=== PATIENT | female | born 1995 | race Caucasian/White ===

== ENCOUNTER 2018-06-03 08:24 | Day surgery (SDC) | payer OTHER ==
--- NOTE | 2018-06-02 17:47 | PDGENHP ---
History and Physical - Chief Complaint LEFT HIP PAIN - History of Present Illness 1. LEFT HIP PAIN S/P Left hip arthroscopy and Left ELVIS HISTORY OF PRESENT ILLNESS: Efrainis a 22 y.o.~~~active female~who I have had the pleasure to consult on today. I have enjoyed meeting her. She~lives in [place], [place]. 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 ~She~is single; she~has 0 children. ~Efrainenjoys volleyball, basketball, dance, outdoor activities, shopping. Margarita's left hip pain started approximately 4.5 years ago, with no~previous complaints and with no~recalled trauma or injury. ~Efraindoes not have~a known history of hip dysplasia, is the third sibling with two older brothers and was normal presentation at . Presentation today is of anterior left hip pain with a positive "C" sign. ~It is non-radiating and sharp. ~The hip does not~wake her~at night and does~click and catch on her. Sitting can be uncomfortable for her. Efraindoes~report suffering from lower back pain episodes. ~Back pain started 6 years ago when she noticed difficulty lying spine with a sharp pain. ~Pain improves with flexion and worsens with extension. ~Comprehensive work-up has revealed no structural abnormalities and she has completed PT for core strengthening. ~She denies neurologic symptoms. Efrainhas~participated in physical therapy for 1 month with 3 - 4 sessions ( most recently in the fall) and has~tried other conservative measures including chiropractic treatments and massage therapy. She~has not~received sufficient symptomatic improvement. Efrainhas~utilized medication for pain management, including NSAID. Efrainhas used medication for 2 ~years. Efraindenies issues with the right hip. ~ Margarita is unable to work-out, hike, or shop due to her hip pain and it has significantly impacted all aspects of her life. Efrainunderstands that she~has a hip and pelvis problem which should be researched and wishes to get a better understanding of her~hip status, followed by an establishment of a treatment strategy, hoping she~would be able to get back to her~well being active life. History: Past medical history: ~ None which is relevant Relevant familial history: None which is relevant Past surgical history: Left Hip Arthroscopy Left ELVIS Efrainreports not having any issues with general anesthesia. I have reviewed, verified and agree with the past medical, surgical, family and social history. Current Medications:~has a current medication list which includes the following prescription(s): tri-sprintec (28). ALLERGIES:~has No Known Allergies. Objective: Physical Examination: Efrainis 5 feet 4 inches tall and weighs 130 Lbs. Efrainis AAO x3; she~is well -nourished, in NAD. Skin is warm and dry. ~Breathing is non-labored. ~CV with RRR by pulse. Abdomen is soft, NTND. ~Currently, she~walks with a normal~gait. She~has no leg length discrepancy and presents with moderate~signs of joint laxity (Beighton Score #4). She~is fit looking. ~~ Trendelenburg sign is positive and proprioception is reduced, both~sides. Lower spine examination is negative for sciatic or femoral nerve irritation with negative SLR &~femoral stretch tests. Range of motion of the spine is normal~for flexion, extension, and rotations, with associated pain on extension. SIJs examination is produces pain on left side with TTP with normal~CHADWICK in relation and local tenderness. Strength, Sensation and pulses are normal - bilaterally Ankles and knees exams are normal~and no~mal-alignment is evident. Hip ROM (degrees): ER At 90~hip FL IR At 90~hip FL IR Neutral hip ER Neutral hip AB AD FL EX R 55 45 50 19 50 10 115 0 L 55 20 40 24 455 10 110 0 Specific hip and pelvis tests: Quadrant CHADWICK Roll Add. Longus R Negative Negative Negative Negative L +++ +++ Negative + (tendon/tubercle) Glut. Med ITB Pos. Imp R Negative Negative w/ weakness Negative L Negative w/ weakness Negative w/ weakness Negative Squeeze test measured weak due to pain inhibition, exquisite TTP at anterior groin/joint capsule Bony Symphysis pubis is pain free to touch while concentric activity of the rectus abdominis, does not~produce pain at its insertion. Ilio Psos specific tests are negative for pain during cycling for both hips~ Greater trochanteric burse is pain free on both hips~however has pain proximal over the lateral joint on the left side Piriformis tests: FAIR is positive on left, reproducing joint symptoms, with no local signs of neuritis related to sciatic nerve bilatarally. Thigh circumference is symmetric with no evidence for muscle atrophy on both~ sides. Hamstrings tests are negative~functional contraction and negative~tendinopathy with the left side demonstrating weakness. On a daily basis, the following percentages reflect Margarita's overall total pain: Deep hip: 100% Imaging: Radiology studies which I have personally reviewed, analyzed and measured are below: XR: AP of the hip and pelvis: Performed in a good technique Coccyx to pubic symphysis distance 2.4 cm. 3 caudal/cephal Specific measurements show: NSA~ Lat. Cam LCE Lat. Pincer C.Over~sign Sharp's angle A.I~% Head~Coverage % Sourcil~ Angle ATDmm R 139 - 24 - - ~ 46 40 72 12 28 L 134 - 25 - - 45 39 77 6 29 [place] Lines are preserved. No Pathological signs are seen in the Symphysis Pubis. No Pathological signs are seen at the Ischial tuberosity. ~~~~~~~~~~~~~ Pos. wall sign Joint Space-WBZ Joint Space-Medial Salt NAD R Negative 6.2 mm 3.4 mm n/a 19.2 mm L Negative 4.6 mm 3.2 N/a 16.8 mm Sclerosis ~~Dysplasia Cysts ISS Sup. Lat. 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 ~Physical examination, imaging, and her~ story correspond with the diagnosis mentioned above. I have explained the diagnosis and its significance to Efrainand we have discussed the various possible treatment options and their implications with her. These include proceeding with conservative treatment while continuing to modify her~activities to avoid aggravating the hip further, resuming anti pain medications or intra articular injections (when needed) which can give temporary relief, a hip arthroscopy aiming to address the above pathology and a hip arthroscopy followed by ELVIS (periacetabular osteotomy) aiming to address the above pathology. We discussed how a labral tear of this nature can only be remedied surgically, and that it will not repair itself on its own. Though it is not emergent to do this repair, doing nothing will likely cause altered joint biomechanics, which can cause faster progression to arthritis. The option to inject the hip with PRP can help with pain but will not repair the labral tear at this chronic stage. We had a lengthy discussion about surgical options, including how arthroscopy will correct the labral tear that is causing Efrainsignificant pain due to the nature of this highly innervated structure. However, the dysplasia is only correctable with ELVIS procedure. We explained how this surgery is an open procedure, and though patients tend to do well in the long-term, it involves significant pain in the first 2-4 weeks post-op and a rather lengthy rehab. Margarita understand that hip arthroscopy and ELVIS are two separate procedures that are best performed one week apart, with the arthroscopy commencing first to "tighten up" any pathology evident in the hip joint (labral repair, etc.) and the ELVIS open procedure occurring 7-10 days later to realign the acetabulum. 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 Efrainunderstands that she~will be weight-bearing post-operatively. We discussed the surgical option in depth and explained that we will need a CT to be more conclusive about our findings. Efrainwill review the info presented but both mom and her requested to move fwd with imaging and surgical plan as soon as possible, to enable her to attend school this fall. We will obtain an MRI with contrast in order to quantitatively assess the status of the cartilage. CT with 3D recon will be done in order to evaluate femoral torsion and to pre plan an accurate and optimal volume and location of bony resection Efrainis happy with this visit and will phone us when she decides how she wishes to proceed. I have also supplied her~with handouts, outlining the expected surgical treatment and rehab involved. I wish Efrainall the best, ~~ Joaquin Coleman MD History Information - Allergies/Home Medication List Allergies/Adverse Reactions: No Known Allergies Allergy (Unverified 05/29/18 14:30) Home Medications: NK [No Known Home Meds] 05/29/18 [Last Taken Unknown] I have personally reviewed and updated: medical history - Social History Smoking Status: Never smoked Review of Systems Review of Systems: Physical Exam Physical Exam:
[2018-06-03] MEDS ORDERED: ceFAZolin 2 GM/DEXTROSE 100 ML IV ONE (08:41)
[2018-06-03] MEDS ORDERED: PREGABALIN 150 MG CAP PO ONE (08:41)
[2018-06-03] MEDS ORDERED: ACETAMINOPHEN 500 MG TAB PO ONE (08:41)
[2018-06-03] MEDS ORDERED: LIDOCAINE 1% 2 ML INJ ID PRN (08:42)
[2018-06-03] MEDS ORDERED: LR 1,000 ML IV ONE (08:42)
[2018-06-03] MEDS ORDERED: MIDAZOLAM 2 MG/2 ML VIAL IVP ONE (08:59)
--- NOTE | 2018-06-03 08:59 | PDANEPAE ---
ANE Past Medical History - Cardiovascular History Hx Hypertension: No Hx Arrhythmias: No Hx Chest Pain: No Hx Coronary Artery / Peripheral Vascular Disease: No Hx CHF / Valvular Disease: No Hx Palpitations: No - Pulmonary History Hx COPD: No Hx Asthma/Reactive Airway Disease: No Hx Recent Upper Respiratory Infection: No Hx Oxygen in Use at Home: No Hx Sleep Apnea: No Sleep Apnea Screening Result - Last Documented: Positive - Neurologic History Hx Cerebrovascular Accident: No Hx Seizures: No Hx Dementia: No - Endocrine History Hx Diabetes: No - Renal History Hx Renal Disorders: No - Liver History Hx Hepatic Disorders: No - Neurological & Psychiatric Hx Hx Neurological and Psychiatric Disorders: No - Cancer History Hx Cancer: No - Congenital Disorder History Hx Congenital Disorders: No - GI History Hx Gastrointestinal Disorders: No - Other Health History Other Health History: NEG - Chronic Pain History Chronic Pain: Yes (LASHAWN HIPS) - Surgical History Prior Surgeries: LABRAL REPAIR L HIP. ELVIS SURGERY L HIP. HARDWARE REMOVAL. DEVIATED SEPTUM REPAIR. TONSILLECTOM ANE Review of Systems Review of Systems: - Exercise capacity METS (RN): 5 METS ANE Patient History - Allergies Allergies/Adverse Reactions: No Known Allergies Allergy (Unverified 05/29/18 14:30) - Home Medications Home Medications: NK [No Known Home Meds] 05/29/18 [Last Taken Unknown] - Smoking Hx Smoking Status: Never smoked - Family Anes Hx Family Hx Anesthesia Complications: NEG ANE Labs/Vital Signs - Vital Signs Height: 162.56 cm Weight: 65.771 kg ANE Physical Exam - Airway Neck exam: FROM Mallampati Score: Class 1 Mouth exam: normal dental/mouth exam - Pulmonary Pulmonary: no respiratory distress - Cardiovascular Cardiovascular: regular rate and rhythym - ASA Status ASA Status: I ANE Anesthesia Plan Anesthesia Plan: general endotracheal anesthesia
[2018-06-03] MEDS ORDERED: EPINEPHrine 30 MG/30 ML MDV (0.1 MG/0.1 ML) ONE (09:06)
[2018-06-03] MEDS ORDERED: BUPIVACAINE/EPI 0.25% 30 ML SDV ONE (09:06)
[2018-06-03] MEDS ORDERED: KETOROLAC 30 MG/1 ML SDV ONE (09:25)
[2018-06-03] MEDS ORDERED: fentaNYL 250 MCG/5 ML INJ ONE (09:25)
[2018-06-03] MEDS ORDERED: DEXAMETHASONE 4 MG/ML VIAL ONE ×2 (09:25→09:26)
[2018-06-03] MEDS ORDERED: PROPOFOL 200 MG/20 ML VIAL ONE (09:25)
[2018-06-03] MEDS ORDERED: RANITIDINE 50 MG/2 ML VIAL ONE (09:26)
[2018-06-03] MEDS ORDERED: ROCURONIUM 100 MG/10 ML VIAL ONE (09:26)
[2018-06-03] MEDS ORDERED: LIDOCAINE 2% 100 MG/5 ML SYR ONE (09:26)
[2018-06-03] MEDS ORDERED: METOCLOPRAMIDE 10 MG/2 ML VIAL ONE (09:26)
[2018-06-03] MEDS ORDERED: fentaNYL 100 MCG/2 ML INJ IVP PRN (13:36)
[2018-06-03] MEDS ORDERED: ALBUTEROL 3 ML DEYVIAL IH PRN (13:36)
[2018-06-03] MEDS ORDERED: MEPERIDINE 25 MG/0.5 ML AMP IVP PRN (13:36)
[2018-06-03] MEDS ORDERED: ONDANSETRON 4 MG/2 ML VIAL IVP PRN (13:36)
[2018-06-03] MEDS ORDERED: HYDROmorphONE/DILAUDID 2 MG/ML INJ IVP PRN (13:36)
[2018-06-03] MEDS ORDERED: NALOXONE HCL 0.4 MG/ML INJ IVP PRN (13:36)
--- NOTE | 2018-06-03 13:37 | POSTANESTH ---
Post Anesthetic Evaluation Cardiovascular Status: Similar to Pre-Op Cond Respiratory Status: Similar to Pre-op Cond. Level of Consciousness/Mental Status: Mildly Sleepy, Arousable Pain Control: Adequate, Prn Tx Ordered Nausea/Vomiting Control: Adequate, Prn Tx Ordered Complications Possibly Related to Anesthesia: None Noted
[2018-06-03] MEDS ORDERED: ONDANSETRON 4 MG/2 ML VIAL ONE (14:10)
[2018-06-03] MEDS ORDERED: OXYCODONE/APAP 5/325 TAB PO PRN (15:00)
[2018-06-03] MEDS ORDERED: SCOPOLAMINE HYDROBROMIDE 1 MG/3 DAYS PATCH TD ONE ×2 (15:14→15:30)
[2018-06-03] MEDS ORDERED: PROMETHAZINE HCL 25 MG/ML INJ IVP ONE ×2 (16:00→16:10)
[2018-06-03] MEDS ORDERED: ONDANSETRON 4 MG/2 ML VIAL IVP ONE (16:00)
--- NOTE | 2018-06-03 17:18 | POSTOPPROG ---
Post Op Note Date of Operation: 06/03/18 Surgeon: Benedicto Pulliam Woodworking Belt Sander: Dr. Oakes Anesthesia: GET(General Endotracheal) Pre-op Diagnosis: Left BHUPENDRA Post-op Diagnosis: LEFT BHUPENDRA Procedure: Left hip arthroscopy Inf/Abcess present in the surg proc area at time of surgery?: No
[2018-06-03 17:43] VITALS: BP 110/58
== END 2018-06-03 17:56 | disposition home or self-care (01) ==
LOC: FSGY 08:24
PROVIDERS: ATTEND Orthopaedic Surgery Sports Medicine
PROC: 0SQB4ZZ Repair Left Hip Joint, Percutaneous Endoscopic Approach (ICD-10-PCS; principal; 2018-06-03 13:00)
PROC: BQ111ZZ Fluoroscopy of Left Hip using Low Osmolar Contrast (ICD-10-PCS; principal; 2018-06-03 13:00)
PROC: 0SBB4ZZ Excision of Left Hip Joint, Percutaneous Endoscopic Approach (ICD-10-PCS; principal; 2018-06-03 13:00)
DX: M25.852 Other specified joint disorders, left hip (principal); Q65.89 Other specified congenital deformities of hip
CPT/HCPCS: C1713; J0171; J0690; J1100; J1885; J2001; J2250; J2405; J2550; J2704; J2765; J2780; J3010

== ENCOUNTER 2018-10-29 08:09 | Day surgery (SDC) | payer OTHER | END 2018-10-29 14:46 | disposition home or self-care (01) | LOC: FSGY 08:09 ==

== ENCOUNTER 2018-11-05 06:07 | Inpatient (IN) | payer OTHER | END 2018-11-09 12:14 | disposition home or self-care (01) | LOC: F3N 06:07 ==

== ENCOUNTER 2018-11-12 04:42 | Emergency (ER) | payer OTHER | END 2018-11-12 05:55 | disposition home or self-care (01) ==